=== PATIENT | female | born 1930 | race Caucasian/White ===

== ENCOUNTER 2020-10-29 19:33 | Observation (INO) | payer MEDICARE, OTHER ==
[2020-10-29] MEDS ORDERED: SODIUM CHLORIDE 0.9% 500 ML 500 ML IV STA (20:08)
--- NOTE | 2020-10-29 20:24 | ED ---
General Adult HPI - General Chief complaint: Dizziness Stated complaint: Dizziness, High BP Time Seen by Provider: 10/29/20 20:01 Source: patient Mode of arrival: ambulatory Limitations: no limitations - History of Present Illness Initial comments: 89 year-old female patient presents to the emergency department for evaluation of dizziness that started this evening. States that she had a day of shopping with her daughters today and was feeling well. Started to feel lightheaded and woozy. States symptoms worsen when she stands and walks. Denies any headache, blurred vision, double vision, chest pain, or shortness of breath. Denies numbness, tingling, or weakness to her extremities. Denies any fever or chills. She recently completed 7 day course of antibiotic for UTI. Also was started on a new Amlodipine 2.5mg 4 days ago for elevated blood pressures. Patient already takes losartan 100mg once daily and metoprolol 25mg twice daily. Patient denies any recent rash, fever, chills, cough, abdominal pain, nausea, vomiting, diarrhea, constipation, back pain, hematuria, dysuria, urinary urgency, urinary frequency, or any other complaints. - Related Data Home Medications Medication Instructions Recorded Confirmed Apixaban [Eliquis] 2.5 mg PO BID 10/29/20 10/29/20 Dialyvite 800mg 800 mg PO DAILY 10/29/20 10/29/20 Latanoprost [Xalatan 0.005%] 1 drop BOTH EYES HS 10/29/20 10/29/20 Losartan Potassium 100 mg PO DAILY 10/29/20 10/29/20 Metoprolol Tartrate [Lopressor] 50 mg PO BID 10/29/20 10/29/20 Rosuvastatin [Crestor] 20 mg PO DAILY 10/29/20 10/29/20 Timolol 0.5% Ophth Soln [Timoptic 1 drop BOTH EYES BID 10/29/20 10/29/20 0.5% Ophth Soln] amLODIPine [Norvasc] 2.5 mg PO DAILY 10/29/20 10/29/20 Allergies Allergy/AdvReac Type Severity Reaction Status Date / Time No Known Allergies Allergy Verified 10/29/20 22:41 Review of Systems ROS Statement: Those systems with pertinent positive or pertinent negative responses have been documented in the HPI. ROS Other: All systems not noted in ROS Statement are negative. Past Medical History Past Medical History: CVA/TIA, Hypertension History of Any Multi-Drug Resistant Organisms: None Reported Past Surgical History: Section Additional Past Surgical History / Comment(s): Ear sx, breast biopsy Past Psychological History: No Psychological Hx Reported Smoking Status: Never smoker Past Alcohol Use History: None Reported Past Drug Use History: None Reported General Exam Limitations: no limitations General appearance: alert, in no apparent distress, other (This is a well- developed, well-nourished elderly female patient in no acute distress. Vital signs upon presentation are temperature 98.4F, pulse 81, respirations 18, blood pressure 166/82, pulse ox 98% on room air.) Eye exam: Present: normal appearance, PERRL, EOMI. Absent: scleral icterus, conjunctival injection, nystagmus, periorbital swelling ENT exam: Present: normal exam, normal oropharynx, mucous membranes moist Respiratory exam: Present: normal lung sounds bilaterally. Absent: respiratory distress, wheezes, rales, rhonchi, stridor Cardiovascular Exam: Present: regular rate, normal rhythm, normal heart sounds. Absent: systolic murmur, diastolic murmur, rubs, gallop, clicks GI/Abdominal exam: Present: soft, normal bowel sounds. Absent: distended, tenderness, guarding, rebound, rigid Neurological exam: Present: alert, oriented X3, CN II-XII intact Expanded Speech: Present: fluid speech Cranial nerves: EOM's Intact: Normal, Nystagmus: Normal Motor strength exam: RUE: 5, LUE: 5, RLE: 5, LLE: 5 Psychiatric exam: Present: normal affect, normal mood Skin exam: Present: warm, dry, intact, normal color. Absent: rash Course Vital Signs 10/29/20 10/29/20 10/29/20 19:34 21:25 22:03 Temperature 98.4 F Pulse Rate 81 88 Respiratory 18 16 Rate Blood Pressure 166/82 149/59 Blood Pressure 180/82 [Sitting] Blood Pressure 181/100 [Standing] Blood Pressure 176/78 [Supine] O2 Sat by Pulse 98 97 Oximetry EKG Findings - EKG Comments: EKG Findings:: EKG obtained at 2051 shows sinus rhythm with premature supraventricular complexes. Ventricular rate is 87, SD interval 176, QRS duration 72, QT 366, QTC 440. No evidence of ST elevation or depression. Medical Decision Making - Medical Decision Making 89-year-old female patient presents the emergency department today for evaluat ion of dizziness as started this evening. Physical examination is unremarkable. She is neurologically intact with no focal deficits. Labs reviewed revealing hemoglobin 10.6, BUN 22, creatinine 1.21. There are no previous labs for comparison. EKG was unremarkable. Troponin negative. Patient was able to ambulate however family and patient are uncomfortable being discharged ridges I have a family doctor in the area as she fermin in [place]. Patient does still report some dizziness. She will be admitted for observation. Case discussed with my attending Dr. Linares. - Lab Data Result diagrams: 10/29/20 20:41 10/29/20 20:41 Lab Results 10/29/20 10/29/20 10/29/20 Range/Units 20:41 20:41 20:41 WBC 8.0 (3.8-10.6) k/uL RBC 3.41 L (3.80-5.40) m/uL Hgb 10.6 L (11.4-16.0) gm/dL Hct 29.8 L (34.0-46.0) % MCV 87.2 (80.0-100.0) fL MCH 31.0 (25.0-35.0) pg MCHC 35.5 (31.0-37.0) g/dL RDW 13.6 (11.5-15.5) % Plt Count 259 (150-450) k/uL MPV 7.5 Neutrophils % 61 % Lymphocytes % 28 % Monocytes % 7 % Eosinophils % 3 % Basophils % 0 % Neutrophils # 4.8 (1.3-7.7) k/uL Lymphocytes # 2.2 (1.0-4.8) k/uL Monocytes # 0.6 (0-1.0) k/uL Eosinophils # 0.2 (0-0.7) k/uL Basophils # 0.0 (0-0.2) k/uL Sodium 141 (137-145) mmol/L Potassium 4.2 (3.5-5.1) mmol/L Chloride 105 (98-107) mmol/L Carbon Dioxide 27 (22-30) mmol/L Anion Gap 9 mmol/L BUN 22 H (7-17) mg/dL Creatinine 1.21 H (0.52-1.04) mg/dL Est GFR (CKD-EPI)AfAm 46 (>60 ml/min/1.73 sqM) Est GFR (CKD-EPI)NonAf 40 (>60 ml/min/1.73 sqM) Glucose 116 H (74-99) mg/dL Calcium 10.0 (8.4-10.2) mg/dL Magnesium 2.0 (1.6-2.3) mg/dL Total Bilirubin 0.4 (0.2-1.3) mg/dL AST 35 (14-36) U/L ALT 21 (4-34) U/L Alkaline Phosphatase 86 (38-126) U/L Troponin I <0.012 (0.000-0.034) ng/mL Total Protein 6.8 (6.3-8.2) g/dL Albumin 4.5 (3.5-5.0) g/dL Urine Color Urine Appearance (Clear) Urine pH (5.0-8.0) Ur Specific [place] (1.001-1.035) Urine Protein (Negative) Urine Glucose (UA) (Negative) Urine Ketones (Negative) Urine Blood (Negative) Urine Nitrite (Negative) Urine Bilirubin (Negative) Urine Urobilinogen (<2.0) mg/dL Ur Leukocyte Esterase (Negative) Urine RBC (0-5) /hpf Urine WBC (0-5) /hpf Ur Squamous Epith Cells (0-4) /hpf Urine Bacteria (None) /hpf Urine Mucus (None) /hpf 10/29/20 Range/Units 20:45 WBC (3.8-10.6) k/uL RBC (3.80-5.40) m/uL Hgb (11.4-16.0) gm/dL Hct (34.0-46.0) % MCV (80.0-100.0) fL MCH (25.0-35.0) pg MCHC (31.0-37.0) g/dL RDW (11.5-15.5) % Plt Count (150-450) k/uL MPV Neutrophils % % Lymphocytes % % Monocytes % % Eosinophils % % Basophils % % Neutrophils # (1.3-7.7) k/uL Lymphocytes # (1.0-4.8) k/uL Monocytes # (0-1.0) k/uL Eosinophils # (0-0.7) k/uL Basophils # (0-0.2) k/uL Sodium (137-145) mmol/L Potassium (3.5-5.1) mmol/L Chloride (98-107) mmol/L Carbon Dioxide (22-30) mmol/L Anion Gap mmol/L BUN (7-17) mg/dL Creatinine (0.52-1.04) mg/dL Est GFR (CKD-EPI)AfAm (>60 ml/min/1.73 sqM) Est GFR (CKD-EPI)NonAf (>60 ml/min/1.73 sqM) Glucose (74-99) mg/dL Calcium (8.4-10.2) mg/dL Magnesium (1.6-2.3) mg/dL Total Bilirubin (0.2-1.3) mg/dL AST (14-36) U/L ALT (4-34) U/L Alkaline Phosphatase (38-126) U/L Troponin I (0.000-0.034) ng/mL Total Protein (6.3-8.2) g/dL Albumin (3.5-5.0) g/dL Urine Color Light Yellow Urine Appearance Clear (Clear) Urine pH 6.5 (5.0-8.0) Ur Specific [place] 1.008 (1.001-1.035) Urine Protein 1+ H (Negative) Urine Glucose (UA) Negative (Negative) Urine Ketones Negative (Negative) Urine Blood Small H (Negative) Urine Nitrite Negative (Negative) Urine Bilirubin Negative (Negative) Urine Urobilinogen <2.0 (<2.0) mg/dL Ur Leukocyte Esterase Trace H (Negative) Urine RBC <1 (0-5) /hpf Urine WBC 3 (0-5) /hpf Ur Squamous Epith Cells 1 (0-4) /hpf Urine Bacteria Rare H (None) /hpf Urine Mucus Rare H (None) /hpf Disposition Clinical Impression: Dizziness Disposition: ADMITTED IP TO THIS [facility] Condition: Serious Decision to Admit Reason: Admit from EC Decision Date: 10/29/20 Decision Time: 22:22
[2020-10-29 21:02] LABS: Basophils % (A) 0 %; Eosinophils # (A) 0.2 k/uL (0-0.7); Eosinophils % (A) 3 %; HCT 29.8 % (34.0-46.0); HGB 10.6 gm/dL (11.4-16.0); Lymphocytes # (A) 2.2 k/uL (1.0-4.8); Lymphocytes % (A) 28 %; MCHC 35.5 g/dL (31.0-37.0); MCV 87.2 fL (80.0-100.0); Mean Platelet Volume 7.5; Monocytes # (A) 0.6 k/uL (0-1.0); Monocytes % (A) 7 %; Neutrophils # (A) 4.8 k/uL (1.3-7.7); Neutrophils % (A) 61 %; Platelet Count 259 k/uL (150-450); RBC 3.41 m/uL (3.80-5.40); RDW 13.6 % (11.5-15.5)
[2020-10-29 21:09] LABS: Appearance,Urine Clear (Clear); Bacteria,Urine Rare /hpf; Bilirubin,Urine Negative (Negative); Blood,Urine Small (Negative); Color,Urine Light Yellow; Glucose,Urine (UA) Negative (Negative); Ketones,Urine Negative (Negative); Leukocyte Esterase,Urine Trace (Negative); Mucus,Urine Rare /hpf; Nitrite,Urine Negative (Negative); PH, Urine 6.5 (5.0-8.0); Protein,Urine 1+ (Negative); RBC,Urine <1 /hpf (0-5); Specific Gravity,Urine 1.008 (1.001-1.035); Squamous Epithelial Cell,Urine 1 /hpf (0-4); Urobilinogen,Urine <2.0 mg/dL (<2.0); WBC,Urine 3 /hpf (0-5)
--- NOTE | 2020-10-29 21:13 | XR ---
EXAMINATION TYPE: XR chest 2V DATE OF EXAM: 10/29/2020 COMPARISON: NONE HISTORY: Dizziness. TECHNIQUE: Frontal and lateral views of the chest are obtained. FINDINGS: There is chronic parenchymal change bilaterally without suspicious focal air space opacity , pleural effusion, or pneumothorax seen. The cardiac silhouette size is mildly enlarged with athero sclerotic thoracic aorta. The osseous structures are demineralized. Underlying scoliosis or scoliot ic positioning IMPRESSION: Chronic changes and mild cardiomegaly without acute pulmonary process.
[2020-10-29 21:27] LABS: Albumin 4.5 g/dL (3.5-5.0); Potassium 4.2 mmol/L (3.5-5.1); Total Bilirubin 0.4 mg/dL (0.2-1.3); Total Protein 6.8 g/dL (6.3-8.2)
[2020-10-29] MEDS ORDERED: NALOXONE 0.4 MG/ML 1 ML VIAL IV PRN (22:20)
[2020-10-30] MEDS ORDERED: SODIUM CHLORIDE 0.9% 500 ML 500 ML IV ONE (10:23)
[2020-10-30] MEDS ORDERED: LOSARTAN 50 MG TAB PO SCH (10:30)
[2020-10-30] MEDS ORDERED: METOPROLOL TARTRATE 50 MG TAB PO SCH (10:30)
--- NOTE | 2020-10-30 13:45 | ECHOF ---
Referral Reason: MEASUREMENTS -------- HEIGHT: 162.6 cm WEIGHT: 59.0 kg BP: IVSd: 1.2 cm (0.6 - 1.1) LVIDd: 2.8 cm (3.9 - 5.3) LVPWd: 1.2 cm (0.6 - 1.1) IVSs: 1.6 cm LVIDs: 1.5 cm LVPWs: 1.3 cm LAESV Index (A-L): 41.11 ml/m Ao Diam: 2.7 cm (2.0 - 3.7) AV Cusp: 1.3 cm (1.5 - 2.6) LA Diam: 3.5 cm (2.7 - 3.8) MV EXCURSION: 24.642 mm (> 18.000) MV EF SLOPE: 186 mm/s (70 - 150) EPSS: 1.6 cm MV E Josh: 1.14 m/s MV DecT: 122 ms MV A Josh: 0.85 m/s MV E/A Ratio: 1.34 AV maxP.13 mmHg AV meanP.24 mmHg RAP: 5.00 mmHg RVSP: 13.69 mmHg FINDINGS -------- Sinus rhythm. This was a technically adequate study. The left ventricular size is normal. There is mild concentric left ventricular hypertrophy. Overa ll left ventricular systolic function is normal with, an EF between 55 - 60 %. The diastolic fillin g pattern is normal for the age of the patient 11.21. The right ventricle is normal in size. LA is severely dilated >40 ml/m2 The right atrial size is normal. There is mild aortic valve sclerosis. There is mild aortic stenosis present. Peak/mean gradient a cross the Aortic Valve is 15.13mmHg / 9.24mmHg. Mild mitral annular calcification present. Mild mitral regurgitation is present. The tricuspid valve appears structurally normal. Mild tricuspid regurgitation present. Right vent ricular systolic pressure is normal at < 35 mmHg. There is no pulmonic regurgitation present. The aortic root size is normal. Normal inferior vena cava with normal inspiratory collapse consistent with estimated right atrial pre ssure of 5 mmHg. There is no pericardial effusion. CONCLUSIONS -------- 1. There is mild concentric left ventricular hypertrophy. 2. Overall left ventricular systolic function is normal with, an EF between 55 - 60 %. 3. LA is severely dilated >40 ml/m2 4. There is mild aortic valve sclerosis. 5. There is mild aortic stenosis present. 6. Peak/mean gradient across the Aortic Valve is 15.13mmHg / 9.24mmHg. 7. Mild mitral regurgitation is present. 8. Mild tricuspid regurgitation present. 9. There is no pericardial effusion. ELECTRICAL AND INSTRUMENT TECHNICIAN: Radha Wayne RDCS
[2020-10-30 14:25] VITALS: BP 164/72; PULSE 82; RESP 16; TEMP 98.3
--- NOTE | 2020-10-30 15:29 | P.HPIM ---
History of Present Illness 89-year-old female came to visit one with complaints of dizziness and lightheadedness denied any vertiginous symptoms. Patient is found to have creatinine of 1.21. Orthostatic vitals are negative patient clinically hydrated and the patient received standard bolus of IV fluid and I gave her 500 more. Because of the dizziness my concern is the aortic stenosis echocardiac exam was opted which did not show anything diuretic stenosis patient had a normal ejection fraction patient although it appears to have uncontrolled elevated blood pressures patient has a high amplitude QRS complexes and PACs on the EKG and overnight telemetry. Patient dizziness improved patient will be discharged today although had oxygen saturation some gone down from 98% to 93% because of which I do have a concern of pulmonary edema and obtain a stat chest x-ray that's negative patient will be discharged today. I do not have any baseline creatinine available on her. Patient lives with her daughter. Review of Systems REVIEW OF SYSTEMS: CONSTITUTIONAL: No fever, no malaise, no fatigue. HEENT: No recent visual problems or hearing problems. Denied any sore throat. CARDIOVASCULAR: No chest pain, orthopnea, PND, no palpitations, no syncope. PULMONARY: No shortness of breath, no cough, no hemoptysis. GASTROINTESTINAL: No diarrhea, no nausea, no vomiting, no abdominal pain. NEUROLOGICAL: No headaches, no weakness, no numbness. HEMATOLOGICAL: Denies any bleeding or petechiae. GENITOURINARY: Denies any burning micturition, frequency, or urgency. MUSCULOSKELETAL/RHEUMATOLOGICAL: Denies any joint pain, swelling, or any muscle pain. ENDOCRINE: Denies any polyuria or polydipsia. The rest of the 14-point review of systems is negative. 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 History of Any Multi-Drug Resistant Organisms: None Reported Past Surgical History: Breast Surgery, Section, Ear Surgery Additional Past Surgical History / Comment(s): L ear surgery-pt cannot recall reason, bilateral breast benign biopsies Past Anesthesia/Blood Transfusion Reactions: No Reported Reaction, Motion Sickness Additional Past Anesthesia/Blood Transfusion Reaction / Comment(s): Pt has fauzia terphobia. Smoking Status: Never smoker - Past Family History Father Family Medical History: Diabetes Mellitus Mother Family Medical History: No Reported History Additional Family Medical History / Comment(s): Mother lived to be 101 yrs old. Medications and Allergies Home Medications Medication Instructions Recorded Confirmed Type Dialyvite 800mg 800 mg PO DAILY 10/29/20 10/29/20 History Latanoprost [Xalatan 0.005%] 1 drop BOTH EYES HS 10/29/20 10/29/20 History Losartan Potassium 100 mg PO DAILY 10/29/20 10/29/20 History Metoprolol Tartrate [Lopressor] 50 mg PO BID 10/29/20 10/29/20 History Rosuvastatin [Crestor] 20 mg PO DAILY 10/29/20 10/29/20 History Timolol 0.5% Ophth Soln [Timoptic 1 drop BOTH EYES BID 10/29/20 10/29/20 History 0.5% Ophth Soln] amLODIPine [Norvasc] 2.5 mg PO DAILY 10/29/20 10/29/20 History Allergies Allergy/AdvReac Type Severity Reaction Status Date / Time No Known Allergies Allergy Verified 10/29/20 22:41 Physical Exam Vitals: Vital Signs Temp Pulse Pulse Resp BP BP BP 10/30/20 13:53 98.3 F 82 16 164/72 10/30/20 12:51 140/58 10/30/20 11:11 100 18 140/66 10/30/20 09:34 77 18 139/56 10/30/20 07:42 69 18 124/54 10/30/20 04:00 76 20 128/58 10/30/20 02:47 71 20 150/67 10/29/20 22:03 88 16 149/59 10/29/20 21:25 180/82 10/29/20 19:34 98.4 F 81 18 166/82 BP BP Pulse Ox 10/30/20 13:53 93 L 10/30/20 12:51 10/30/20 11:11 98 10/30/20 09:34 98 10/30/20 07:42 99 10/30/20 04:00 95 10/30/20 02:47 100 10/29/20 22:03 97 10/29/20 21:25 181/100 176/78 10/29/20 19:34 98 Intake and Output 10/30/20 10/30/20 10/30/20 06:59 14:59 22:59 Other: Voiding Method Bedside Commode # Voids 0 # Bowel Movements 0 Weight 58.967 kg PHYSICAL EXAMINATION: GENERAL: The patient is alert and oriented x3, not in any acute distress. Thin built elderly woman HEENT: Pupils are round and equally reacting to light. EOMI. No scleral icterus. No conjunctival pallor. Normocephalic, atraumatic. No pharyngeal erythema. No thyromegaly. CARDIOVASCULAR: S1 and S2 present. No murmurs, rubs, or gallops. PULMONARY: Chest is clear to auscultation, no wheezing or crackles. ABDOMEN: Soft, nontender, nondistended, normoactive bowel sounds. No palpable organomegaly. MUSCULOSKELETAL: No joint swelling or deformity. EXTREMITIES: No cyanosis, clubbing, or pedal edema. NEUROLOGICAL: Gross neurological examination did not reveal any focal deficits. SKIN: No rashes. Results CBC & Chem 7: 10/29/20 20:41 10/29/20 20:41 Labs: Abnormal Lab Results - Last 24 Hours (Table) 10/29/20 10/29/20 10/29/20 Range/Units 20:41 20:41 20:45 RBC 3.41 L (3.80-5.40) m/uL Hgb 10.6 L (11.4-16.0) gm/dL Hct 29.8 L (34.0-46.0) % BUN 22 H (7-17) mg/dL Creatinine 1.21 H (0.52-1.04) mg/dL Glucose 116 H (74-99) mg/dL Urine Protein 1+ H (Negative) Urine Blood Small H (Negative) Ur Leukocyte Esterase Trace H (Negative) Urine Bacteria Rare H (None) /hpf Urine Mucus Rare H (None) /hpf Thrombosis Risk Factor Assmnt - Choose All That Apply Any of the Below Risk Factors Present?: Yes Other Risk Factors: Yes Each Risk Factor Represents 3 Points: Age 75 years or older Other congenital or acquired thrombophilia - If yes, enter type in comment: No Thrombosis Risk Factor Assessment Total Risk Factor Score: 3 Thrombosis Risk Factor Assessment Level: Moderate Risk Assessment and Plan Plan: -Dizziness: Secondary to mild intravascular depletion: Patient received IV fluids echocardiogram did not show any significant abnormality telemetry showed only PACs patient will be discharged today no medication changes are being made -CVA/TIA in the past -Hyperlipidemia Hypertension Patient's symptoms improve patient will be discharged to follow with her primary care physician as an outpatient.
--- NOTE | 2020-10-30 15:30 | P.DS ---
Providers Date of admission: 10/29/20 22:25 Attending physician: Keturah Chu Primary care physician: Physician Nonstaff Hospital Course: Please refer to my HPI for further details Patient Condition at Discharge: Serious Plan - Discharge Summary Discharge Rx Participant: No New Discharge Prescriptions: Continue Losartan Potassium 100 mg PO DAILY Dialyvite 800mg 800 mg PO DAILY Timolol 0.5% Ophth Soln [Timoptic 0.5% Ophth Soln] 1 drop BOTH EYES BID Rosuvastatin [Crestor] 20 mg PO DAILY Metoprolol Tartrate [Lopressor] 50 mg PO BID Latanoprost [Xalatan 0.005%] 1 drop BOTH EYES HS amLODIPine [Norvasc] 2.5 mg PO DAILY Discontinued Apixaban [Eliquis] 2.5 mg PO BID Discharge Medication List Dialyvite 800mg 800 mg PO DAILY 10/29/20 [History] Latanoprost [Xalatan 0.005%] 1 drop BOTH EYES HS 10/29/20 [History] Losartan Potassium 100 mg PO DAILY 10/29/20 [History] Metoprolol Tartrate [Lopressor] 50 mg PO BID 10/29/20 [History] Rosuvastatin [Crestor] 20 mg PO DAILY 10/29/20 [History] Timolol 0.5% Ophth Soln [Timoptic 0.5% Ophth Soln] 1 drop BOTH EYES BID 10/29/20 [History] amLODIPine [Norvasc] 2.5 mg PO DAILY 10/29/20 [History] Follow up Appointment(s)/Referral(s): Nonstaff,Physician [Primary Care Provider] - 3 Days Patient Instructions/Handouts: Dizziness (ED) Activity/Diet/Wound Care/Special Instructions: Discharge Disposition: HOME SELF-CARE
--- NOTE | 2020-10-30 16:16 | XR ---
EXAMINATION TYPE: XR chest 1V DATE OF EXAM: 10/30/2020 COMPARISON: Chest x-ray 10/29/2020 HISTORY: Congestive heart failure TECHNIQUE: Single frontal view of the chest is obtained. FINDINGS: Patient is rotated. Aorta is dense. There are overlying artifacts. There is no focal air s pace opacity, pleural effusion, or pneumothorax seen. The cardiac silhouette size is within normal l imits, stable accounting for technique. The osseous structures are intact, bone mineralization is r educed. IMPRESSION: No acute process.
[2020-10-30] MEDS ORDERED: APIXABAN 2.5 MG TABLET PO SCH (21:00)
[2020-10-30] MEDS ORDERED: LATANOPROST 0.005% OPHTH DROPS 2.5 ML BTL BOTH EYES SCH (21:00)
[2020-10-30] MEDS ORDERED: TIMOLOL 0.5% OPHTH DROPS 5 ML BTL BOTH EYES SCH (21:00)
[2020-10-31] MEDS ORDERED: ATORVASTATIN 40 MG TAB PO SCH (09:00)
[2020-10-31] MEDS ORDERED: amLODIPine 2.5 MG TAB PO SCH (09:00)
== END 2020-10-30 17:08 | disposition home or self-care (01) ==
LOC: EC 19:33 → 6NMEDSUR 22:25
PROVIDERS: ADMIT Hospitalist; ATTEND Hospitalist
DX: E86.9 Volume depletion, unspecified (principal); I11.9 Hypertensive heart disease without heart failure; I49.1 Atrial premature depolarization; E78.5 Hyperlipidemia, unspecified; I69.921 Dysphasia following unspecified cerebrovascular disease; F40.240 Claustrophobia; Z20.822 Contact with and (suspected) exposure to COVID-19; Z79.01 Long term (current) use of anticoagulants; Z79.899 Other long term (current) drug therapy; Z86.19 Personal history of other infectious and parasitic diseases; Z98.891 History of uterine scar from previous surgery; Z98.890 Other specified postprocedural states; Z87.440 Personal history of urinary (tract) infections; Z87.01 Personal history of pneumonia (recurrent); Z83.3 Family history of diabetes mellitus
CPT/HCPCS: 99285; 36415; 93005; 93306; 80053; 83735; 84484; 85025; 81001; 87635; 71045; 71046; G0378 ×2